=== PATIENT | male | born 1975 | race Caucasian/White ===

== ENCOUNTER 2021-03-14 23:59 | Emergency (ER) | payer SELFPAY | END 2021-03-15 03:38 | disposition home or self-care (01) | LOC: ER1 23:59 | DX: R20.2 Paresthesia of skin (principal); E11.9 Type 2 diabetes mellitus without complications; Z88.2 Allergy status to sulfonamides; Z88.8 Allergy status to other drugs, medicaments and biological substances | CPT/HCPCS: 72128; 72131; 73564; 99284 ==